=== PATIENT | male | born 1970 | race Caucasian/White ===

== ENCOUNTER 2022-10-23 15:27 | Emergency (ER) | payer SELFPAY ==
[2022-10-23] MEDS ORDERED: Sodium Chloride 0.9% 10 ML Syringe FLUSH PRN (15:39)
[2022-10-23] MEDS ORDERED: Alum Hydrox/Mag Hydrox/Simeth 30 ML, Lidocaine 2% 15 ML PO ONE ×4 (15:40→17:59)
[2022-10-23] MEDS ORDERED: Famotidine 20 MG/2 ML SDV IVPUSH ONE (15:40)
[2022-10-23 17:16] LABS: BASOPHILS ABSOLUTE AUTO 0.03 K/mm3 (0.01-0.08); BASOPHILS PERCENT AUTO 0.4 % (0.1-1.2); EOSINOPHILS ABSOLUTE AUTO 0.18 K/mm3 (0.04-0.54); EOSINOPHILS PERCENT AUTO 2.3 (0.8-7.0); HEMATOCRIT 45.2 % (40.1-51.0); HEMOGLOBIN 14.9 gm/dl (13.7-17.5); IMMATURE GRAN ABSOLUTE AUTO 0.06 K/mm3 (0.00-0.10); IMMATURE GRAN PERCENT AUTO 0.8 % (<=1.0); LYMPHOCYTES ABSOLUTE AUTO 2.94 K/mm3 (1.32-3.57); LYMPHOCYTES PERCENT AUTO 37.2 % (21.8-53.1); MEAN CORPUSCULAR HEMOGLOBIN 33.2 pg (25.7-32.2); MEAN CORPUSCULAR VOLUME 100.7 fl (79.0-92.2); MEAN PLATELET VOLUME 10.3 fl (9.4-12.3); MONOCYTES ABSOLUTE AUTO 0.75 K/mm3 (0.30-0.82); MONOCYTES PERCENT AUTO 9.5 % (5.3-12.2); NEUTROPHILS ABSOLUTE AUTO 3.95 K/mm3 (1.78-5.38); NEUTROPHILS PERCENT AUTO 49.8 % (34.0-67.9); PLATELET COUNT,PLT 207 K/mm3 (163-337); RED BLOOD CELL COUNT 4.49 M/mm3 (4.63-6.08); WHITE BLOOD CELL COUNT,WBC 7.91 K/mm3 (4.23-9.07)
[2022-10-23 17:34] LABS: ALANINE AMINOTRANSFERASE,ALT 54 U/L (16-63); ALBUMIN 3.4 g/dl (3.4-5.0); ALKALINE PHOSPHATASE 59 U/L (46-116); ANION GAP 12.3 (5-15); ASPARTATE AMNIOTRANSFERASE,AST 21 U/L (15-37); BILIRUBIN TOTAL 0.4 mg/dL (0.2-1.0); BLOOD UREA NITROGEN,BUN 19 mg/dL (7-18); CALCIUM 8.3 mg/dL (8.5-10.1); CARBON DIOXIDE,CO2 25 mEq/L (21-32); CHLORIDE,CL 102 mEq/L (98-107); ESTIMATED GFR 91 mL/min (>60); GLUCOSE RANDOM 93 mg/dL (70-99); LIPASE 373 U/L (73-393); POTASSIUM,K 4.3 mEq/L (3.5-5.1); PROTEIN TOTAL,TP 6.8 g/dl (6.4-8.2); SODIUM,NA 135 mEq/L (136-145); TROPONIN I HIGH SENSITIVITY 5 pg/mL (<=76)
[2022-10-23] MEDS ORDERED: Famotidine 20 MG/2 ML SDV ONE (17:55)
[2022-10-23] MEDS ORDERED: Pantoprazole 40 MG Vial IVPUSH ONE (17:58)
[2022-10-23] MEDS ORDERED: Aluminum Hydroxide/Magnesium Hydroxide/Simethicone Susp 30 ML Cup PO ONE (18:01)
== END 2022-10-23 18:48 | disposition home or self-care (01) ==
LOC: JD.ED 15:27
DX: R07.89 Other chest pain (principal); R10.13 Epigastric pain; F17.210 Nicotine dependence, cigarettes, uncomplicated
CPT/HCPCS: 36415; 71045; 80053; 83690; 84484; 85025; 93005; 96374; 96375; 99285; A9270; C9113; J3490; 93010; 99284